=== PATIENT | female | born 1990 | race Caucasian/White ===

== ENCOUNTER → 2020-09-24 13:37 | Outpatient (CLI) | payer BC, SELFPAY ==
[2020-09-24 14:51] LABS: Final Volume 0.5 mL; Initial Volume 3.5 mL; Semen 30 min. Liquification? Yes
== END ==
PROVIDERS: PCP Family Medicine; Referring Provider Obstetrics & Gynecology; Visit Provider Obstetrics & Gynecology
DX: N97.0 Female infertility associated with anovulation (principal)
CPT/HCPCS: 58323

== ENCOUNTER → 2020-11-24 09:57 | Outpatient (CLI) | payer BC, SELFPAY ==
[2020-11-24 10:36] LABS: Initial Volume 5.5 mL; Semen 30 min. Liquification? No
[2020-12-25 13:40] LABS: Final Volume 0.5 mL; Semen 30 min. Liquification? No
== END ==
PROVIDERS: PCP Family Medicine; Referring Provider Obstetrics & Gynecology; Visit Provider Obstetrics & Gynecology
DX: E28.2 Polycystic ovarian syndrome (principal)
CPT/HCPCS: 58323

== ENCOUNTER → 2021-01-17 08:12 | Outpatient (CLI) | payer BC, SELFPAY ==
--- NOTE | 2021-01-17 08:12 | DI.RAD.S_ITS ---
PROCEDURE: HL HYSTEROSAPINGOGRAPHY INDICATIONS: Infertility Evaluation COMPARISON: None. FINDINGS: Patient had a documented negative test prior to the study. Following speculum insertion, a balloon-tip catheter was inserted into the cervical canal, and secured by inflating the balloon. Contrast was then injected into the endometrial canal. Uterus: The uterine cavity appears normal in size and morphology, without synechiae or masses. Fallopian tubes: Both fallopian tubes fill with contrast, and appear normal in caliber and morphology. There is ready dispersion of contrast into the peritoneal cavity. IMPRESSION: Normal hysterosalpingogram demonstrates bilateral fallopian tube patency. Dictated by: Stacy Lepe MD, PhD on 01/17/2021 at 10:10 Approved by: Stacy Lepe MD, PhD on 01/17/2021 at 10:10
--- NOTE | 2021-01-17 10:06 | P.PCN_ITS ---
Procedures Date/Time Date of procedure: 01/17/21 Time of procedure: 09:00 General Procedure description: Hysterosalpingogram The patient is currently day # 9 of her cycle. She took 600 mg of ibuprofen before coming. Informed consent was obtained. She was placed on the fluoroscopy table with an overturned bedpan underneath her bottom. An open- sided speculum was placed into the vagina. The cervix was cleaned x3 with Betadine. A single-tooth tenaculum was placed on the anterior lip of the cervix. An attempt was made to place the hysterosalpingogram catheter into the uterus. The cervix was a bit stenotic. Small dilators were used to open up the cervix. The HSG catheter passed without difficulty. The balloon was inflated with 3 cc of air. The open sided speculum was removed from the vagina. 15 cc of Optiray 300 were injected through the hysterosalpingogram catheter. Under direct fluoroscopic examination the contours of the uterus were noted to be normal. There was immediate spill from both tubes. The remainder of the Optiray 300 was removed from the uterus. The catheter was removed from the uterus after the balloon was deflated. The single-tooth tenaculum was removed from the anterior lip of the cervix. The patient tolerated the procedure well. Complications: none
== END ==
PROVIDERS: PCP Family Medicine; Referring Provider Obstetrics & Gynecology; Visit Provider Obstetrics & Gynecology
DX: N97.0 Female infertility associated with anovulation (principal)
CPT/HCPCS: 58340; 74740

== ENCOUNTER → 2021-01-24 13:25 | Outpatient (CLI) | payer BC, SELFPAY ==
[2021-01-24 14:51] LABS: Final Volume 0.5 mL; Semen 30 min. Liquification? No
== END ==
PROVIDERS: PCP Family Medicine; Referring Provider Obstetrics & Gynecology; Visit Provider Obstetrics & Gynecology
DX: E28.2 Polycystic ovarian syndrome (principal); N97.0 Female infertility associated with anovulation
CPT/HCPCS: 58323